=== PATIENT | male | born 1955 | race Caucasian/White ===

== ENCOUNTER 2018-02-13 14:51 | Outpatient (REF) | payer BC, SELFPAY ==
[2018-02-13 19:50] LABS: COMMENT (LAB VIEW ONLY) 93.96 mg/dL
== END 2018-02-13 15:11 ==
LOC: NCHCN 14:51
PROVIDERS: PCP Internal Medicine; Visit Provider Internal Medicine
DX: E11.9 Type 2 diabetes mellitus without complications (principal)
CPT/HCPCS: 82043; 82570

== ENCOUNTER 2018-08-09 10:04 | Outpatient (REF) | payer BC, SELFPAY ==
[2018-08-09 20:53] LABS: Anion Gap 11.4 mmol/L (3-11); BUN 15 mg/dL (7-18); CO2 24.6 mmol/L (21.0-32.0); CREATININE 1.05 mg/dL (0.70-1.30); Calcium 9.4 mg/dL (8.5-10.1); Chloride 103 mmol/L (98-107); Glucose 160 mg/dL (70-100); Potassium 4.9 mmol/L (3.5-5.1); Sodium 139 mmol/L (136-145)
== END 2018-08-09 10:24 ==
LOC: NCHCN 10:04
PROVIDERS: PCP Internal Medicine; Visit Provider Internal Medicine
DX: E11.9 Type 2 diabetes mellitus without complications (principal)
CPT/HCPCS: 80048

== ENCOUNTER 2018-08-12 11:31 | Outpatient (REF) | payer BC, SELFPAY ==
[2018-08-12 22:00] LABS: Hemoglobin A1C 7.4 % (4.5-6.2)
== END 2018-08-12 11:51 ==
LOC: NCHCN 11:31
PROVIDERS: PCP Internal Medicine; Visit Provider Internal Medicine
DX: E11.9 Type 2 diabetes mellitus without complications (principal)
CPT/HCPCS: 83036

== ENCOUNTER 2019-02-17 22:02 | Outpatient (REF) | payer BC, SELFPAY ==
[2019-02-19 10:14] LABS: PSA, Screening 0.9 ng/mL (0.0-4.5)
== END 2019-02-17 22:22 ==
LOC: NCHCN 22:02
PROVIDERS: PCP Internal Medicine; Visit Provider Internal Medicine
DX: Z00.00 Encounter for general adult medical examination without abnormal findings (principal); E11.9 Type 2 diabetes mellitus without complications; G47.33 Obstructive sleep apnea (adult) (pediatric); Z12.5 Encounter for screening for malignant neoplasm of prostate
CPT/HCPCS: 84153

== ENCOUNTER 2020-01-23 08:27 | Outpatient (REF) | payer BC, SELFPAY ==
[2020-01-23 21:34] LABS: COMMENT (LAB VIEW ONLY) 118.72 mg/dL; Microalb ug/mg Crea 5.4 ug/mg Cr
[2020-01-23 21:53] LABS: ALT 34 U/L (16-63); AST 16 U/L (15-37); Albumin 3.7 g/dL (3.4-5.0); Alkaline Phosphatase 84 U/L (46-116); Anion Gap 10.5 mmol/L (3-11); BUN 13 mg/dL (7-18); Bilirubin, Total 0.5 mg/dL (0.2-1.0); CO2 24.5 mmol/L (21.0-32.0); CREATININE 0.95 mg/dL (0.70-1.30); Calcium 9.3 mg/dL (8.5-10.1); Calculated LDL 80 mg/dL (<100); Chloride 105 mmol/L (98-107); Cholesterol 152 mg/dL (<200); Glucose 116 mg/dL (74-106); HDL Cholesterol 49 mg/dL (40-60); Potassium 4.2 mmol/L (3.5-5.1); Sodium 140 mmol/L (136-145); Total Protein 7.1 g/dL (6.4-8.2); Triglyceride 115 mg/dL (<150)
== END 2020-01-23 08:47 ==
LOC: NCHCN 08:27
PROVIDERS: PCP Internal Medicine; Visit Provider Internal Medicine
DX: E66.9 Obesity, unspecified (principal); E78.5 Hyperlipidemia, unspecified
CPT/HCPCS: 80053; 80061; 82043; 82570; 83036

== ENCOUNTER 2020-01-30 08:13 | Outpatient (REF) | payer BC, SELFPAY ==
[2020-02-10 12:59] LABS: Hepatitis C Ab w Rflx HCV PCR Negative (Negative)
== END 2020-01-30 08:33 ==
LOC: NCHCN 08:13
PROVIDERS: PCP Internal Medicine; Visit Provider Nurse Practitioner Family
DX: Z11.59 Encounter for screening for other viral diseases (principal)
CPT/HCPCS: 86803

== ENCOUNTER 2020-12-23 07:57 | Outpatient (REF) | payer BC, SELFPAY ==
[2020-12-23 14:04] LABS: Anion Gap 9.3 mmol/L (3-11); BUN 20 mg/dL (7-18); CO2 23.7 mmol/L (21.0-32.0); CREATININE 1.1 mg/dL (0.70-1.30); Calcium 9.3 mg/dL (8.5-10.1); Chloride 108 mmol/L (98-107); Glucose 180 mg/dL (74-106); Potassium 4.8 mmol/L (3.5-5.1); Sodium 141 mmol/L (136-145)
[2020-12-23 14:06] LABS: Hemoglobin A1C 6.9 % (<5.7)
[2020-12-23 14:52] LABS: COMMENT (LAB VIEW ONLY) 108.92 mg/dL; Microalb ug/mg Crea 6.2 ug/mg Cr
[2020-12-23 22:16] LABS: PSA, Screening 1.3 ng/mL (0.0-4.5)
== END 2020-12-23 07:58 | disposition home or self-care (01) ==
LOC: NCHCN 07:57
PROVIDERS: Visit Provider Nurse Practitioner Family
DX: E78.5 Hyperlipidemia, unspecified (principal); E11.9 Type 2 diabetes mellitus without complications; I10 Essential (primary) hypertension; Z12.5 Encounter for screening for malignant neoplasm of prostate
CPT/HCPCS: 80048; 84153; 82043; 82570; 83036

== ENCOUNTER 2021-10-28 17:13 | Outpatient (REF) | payer OTHER, SELFPAY ==
[2021-10-28 22:57] LABS: COMMENT (LAB VIEW ONLY) 94.05 mg/dL; Microalb ug/mg Crea 3.8 ug/mg Cr
== END 2021-10-28 17:14 | disposition home or self-care (01) ==
LOC: NCHCN 17:13
PROVIDERS: PCP Internal Medicine; Visit Provider Nurse Practitioner Family
DX: E11.9 Type 2 diabetes mellitus without complications (principal)
CPT/HCPCS: 82043; 82570

== ENCOUNTER 2022-01-23 18:07 | Outpatient (REF) | payer OTHER, SELFPAY ==
[2022-01-23 21:09] LABS: Anion Gap 10.3 mmol/L (3-11); BUN 19 mg/dL (7-18); CO2 23.7 mmol/L (21.0-32.0); CREATININE 1.3 mg/dL (0.70-1.30); Calcium 9.7 mg/dL (8.5-10.1); Chloride 107 mmol/L (98-107); Estimated GFR 60.21 (mL/min/1.73m2); Glucose 117 mg/dL (74-106); Potassium 4.8 mmol/L (3.5-5.1); Sodium 141 mmol/L (136-145)
== END 2022-01-23 18:08 | disposition home or self-care (01) ==
LOC: NCHCN 18:07
PROVIDERS: PCP Internal Medicine; Visit Provider Internal Medicine
DX: E11.9 Type 2 diabetes mellitus without complications (principal); E66.9 Obesity, unspecified; Z00.00 Encounter for general adult medical examination without abnormal findings
CPT/HCPCS: 80048

== ENCOUNTER 2022-03-29 09:50 | Outpatient (REF) | payer OTHER, SELFPAY ==
[2022-03-29 14:08] LABS: Anion Gap 8.8 mmol/L (3-11); BUN 16 mg/dL (7-18); CO2 26.2 mmol/L (21.0-32.0); CREATININE 1.2 mg/dL (0.70-1.30); Calcium 9.6 mg/dL (8.5-10.1); Chloride 107 mmol/L (98-107); Estimated GFR 66.28 (mL/min/1.73m2); Glucose 167 mg/dL (74-106); Potassium 4.4 mmol/L (3.5-5.1); Sodium 142 mmol/L (136-145)
== END 2022-03-29 09:51 | disposition home or self-care (01) ==
LOC: NCHCN 09:50
PROVIDERS: PCP Internal Medicine; Visit Provider Internal Medicine
DX: N17.9 Acute kidney failure, unspecified (principal)
CPT/HCPCS: 80048

== ENCOUNTER 2022-09-07 16:04 | Outpatient (REF) | payer MEDICARE, OTHER, SELFPAY ==
[2022-09-07 21:37] LABS: COMMENT (LAB VIEW ONLY) 69.97 mg/dL
== END 2022-09-07 16:05 | disposition home or self-care (01) ==
LOC: NCHCN 16:04
PROVIDERS: PCP Internal Medicine; Visit Provider Nurse Practitioner Family
DX: E11.9 Type 2 diabetes mellitus without complications (principal)
CPT/HCPCS: 82043; 82570

== ENCOUNTER 2023-04-19 11:20 | Outpatient (REF) | payer MEDICARE, OTHER, SELFPAY ==
[2023-04-19 14:48] LABS: HCT 48.2 % (40.0-50.0); HGB 15.1 g/dL (13.5-17.5); MCH 28.3 pg (27.0-33.0); MCHC 31.3 % (32.0-36.0); MCV 90 fL (80-95); MPV 9.6 fL (8.0-11.0); Platelet Count 366 10^3/uL (130-400); RBC 5.33 10^6/uL (4.36-5.78); RDW 14.3 % (11.8-14.1); RDW-SD 47.2 fL; WBC 8.69 10^3/uL (4.4-10.8)
[2023-04-19 15:21] LABS: ALT 21 U/L (16-63); AST 13 U/L (15-37); Albumin 3.4 g/dL (3.4-5.0); Alkaline Phosphatase 79 U/L (46-116); Anion Gap 12.6 mmol/L (3-11); BUN 13 mg/dL (7-18); Bilirubin, Total 0.5 mg/dL (0.2-1.0); CO2 23.4 mmol/L (21.0-32.0); CREATININE 1.1 mg/dL (0.70-1.30); Chloride 106 mmol/L (98-107); Estimated GFR 73.12 (mL/min/1.73m2); Glucose 149 mg/dL (74-106); Potassium 4.2 mmol/L (3.5-5.1); Sodium 142 mmol/L (136-145); Total Protein 7.4 g/dL (6.4-8.2)
[2023-04-19 15:50] LABS: Hemoglobin A1C 6.3 % (<5.7)
== END 2023-04-19 11:21 | disposition home or self-care (01) ==
LOC: NCHCN 11:20
PROVIDERS: PCP Internal Medicine; Visit Provider Internal Medicine
DX: E11.9 Type 2 diabetes mellitus without complications (principal)
CPT/HCPCS: 80053; 85027; 83036

== ENCOUNTER 2023-12-24 18:16 | Outpatient (REF) | payer MEDICARE, OTHER, SELFPAY ==
[2023-12-24 21:48] LABS: COMMENT (LAB VIEW ONLY) 71.32 mg/dL; Microalb ug/mg Crea 5.9 ug/mg Cr
== END 2023-12-24 18:17 | disposition home or self-care (01) ==
LOC: NCHCN 18:16
PROVIDERS: PCP Internal Medicine; Visit Provider Internal Medicine
DX: E11.9 Type 2 diabetes mellitus without complications (principal)
CPT/HCPCS: 82043; 82570

== ENCOUNTER 2024-04-24 15:31 | Outpatient (REF) | payer MEDICARE, OTHER, SELFPAY ==
[2024-04-24 15:36] LABS: HCT 46.6 % (40.0-50.0); MCH 30.1 pg (27.0-33.0); MCHC 32.2 % (32.0-36.0); MCV 93 fL (80-95); MPV 9.6 fL (8.0-11.0); Platelet Count 272 10^3/uL (130-400); RBC 4.99 10^6/uL (4.36-5.78); RDW 13.6 % (11.8-14.1); RDW-SD 46.4 fL; WBC 10.13 10^3/uL (4.4-10.8)
[2024-04-24 15:55] LABS: Anion Gap 9.2 mmol/L (3-11); BUN 17 mg/dL (7-18); CO2 25.8 mmol/L (21.0-32.0); CREATININE 1.1 mg/dL (0.70-1.30); Calcium 9.6 mg/dL (8.5-10.1); Calculated LDL 65 mg/dL (<100); Chloride 106 mmol/L (98-107); Cholesterol 158 mg/dL (<200); Estimated GFR 72.67 (mL/min/1.73m2); Glucose 138 mg/dL (74-106); HDL Cholesterol 69 mg/dL (40-60); Potassium 4.4 mmol/L (3.5-5.1); Sodium 141 mmol/L (136-145); Triglyceride 120 mg/dL (<150)
[2024-04-24 15:56] LABS: Hemoglobin A1C 6.1 % (<5.7)
[2024-04-24 22:23] LABS: PSA, Diagnostic 1.1 ng/mL (<=4.5)
== END 2024-04-24 15:32 | disposition home or self-care (01) ==
LOC: NCHCN 15:31
PROVIDERS: PCP Internal Medicine; Visit Provider Internal Medicine
DX: I10 Essential (primary) hypertension (principal); E11.9 Type 2 diabetes mellitus without complications
CPT/HCPCS: 80048; 80061; 85027; 83036; 84153

== ENCOUNTER 2024-12-31 15:24 | Outpatient (REF) | payer MEDICARE, OTHER, SELFPAY ==
[2024-12-31 16:46] LABS: COMMENT (LAB VIEW ONLY) 55.12 mg/dL; Microalb ug/mg Crea 6.2 ug/mg Cr
== END 2024-12-31 15:25 | disposition home or self-care (01) ==
LOC: NCHCN 15:24
PROVIDERS: PCP Internal Medicine; Visit Provider Internal Medicine
DX: E11.9 Type 2 diabetes mellitus without complications (principal)
CPT/HCPCS: 82043; 82570